=== PATIENT | female | born 1940 | race Caucasian/White ===

== ENCOUNTER 2017-02-08 10:55 | Inpatient (IN) | payer OTHER ==
[~2017-02-08] VITALS: Ht 157.5 cm; Wt 59.9 kg
[~2017-02-08 10:55] MED LIST: AMLODIPINE BESYL5 MG PO; ATORVASTATIN CA20 MG PO; LEVOFLOXACIN500 MG PO; LISINOPRIL40 MG PO; LORAZEPAM0.5 MG PO; METFORMIN HCL500 MG PO; METOPROLOL SUCC50 MG PO; PREDNISONE10 MG PO; PROMETHAZINE V240 ML PO; TRAZODONE HCL50 MG PO
[2017-02-08 11:56] LABS: BASE EXCESS -5.7 mEq/L (-3 to +3); CARBOXY HGB 3.6 % (0-5); METHEMOGLOBIN 1.5 % (0-1.5); PCO2 29 mm Hg (35-45); PO2 72 mm Hg (80-100)
[2017-02-08 11:57] LABS: COMMENTS - BLOOD GASES A+C+; DEVICE HHFNC; FI02 60 %; O2 FLOW 40 L/MIN; SITE R RAD; TOTAL RESP RATE 20 resp/min
[2017-02-08 12:40] LABS: BASOPHIL COUNT 0.1 K/uL (0-0.1); EOSINOPHIL (%) 0.1 % (0-5); IMMATURE GRANULOCYTE (%) 0.6 % (0.0-0.7); IMMATURE GRANULOCYTE COUNT 0.1 K/uL; INSTRUMENT ABS NEUTROPHIL CT 17.9 K/uL; LYMPHOCYTE COUNT 0.3 K/uL (1.0-2.8); MCH 28.3 PG (29.0-34.0); MCHC 31.4 G/DL (30.0-36.0); MCV 90.2 FL (83-99); MONOCYTE (%) 6.7 % (3-12); MONOCYTE COUNT 1.3 K/uL (0-0.8); NEUTROPHIL (%) 90.7 % (45-76); NEUTROPHIL COUNT 17.9 K/uL (1.8-6.4); RBC DIS.WIDTH-CV 16.6 % (11.8-14.6); RBC DIS.WIDTH-SD 55.4 % (39-53)
[2017-02-08 12:43] LABS: WHITE BLOOD COUNT 19.8 K/uL (4.1-10.2)
[2017-02-08 12:53] LABS: INTER. NORMALIZED RATIO 1.5; PROTHROMBIN TIME 15.5 (9.2-11.2); PTT 29.5 (25-32)
[2017-02-08 12:56] LABS: CHLORIDE 108 mEq/L (99-109); POTASSIUM 4.3 mEq/L (3.7-5.4); SODIUM 144 mEq/L (136-147)
[2017-02-08 12:58] LABS: GLUCOSE 291 mg/dL (70-99)
[2017-02-08 13:00] LABS: ANION GAP 21 MEQ/L (2-14)
[2017-02-08 13:02] LABS: GFR ESTIMATE (CALCULATED) 46 mL/min/
[2017-02-08 13:03] LABS: UREA NITROGEN (BUN) 27 mg/dL (9-23)
[2017-02-08 13:19] LABS: TROP-I INTERPRETATION POSITIVE; TROPONIN-I 0.86 ng/mL (0.0-0.30)
[2017-02-08 13:40] LABS: PLAT.SUFFICIENCY ADEQUATE; PLATELET CLUMPS PRESENT - PLATELET COUNT APPEARS ADQ.
[2017-02-08 16:00] LABS: INFLUENZA A VIRAL ANTIGEN NEGATIVE; INFLUENZA B VIRAL ANTIGEN NEGATIVE
[2017-02-08 18:21] VITALS: BP 123/79
[2017-02-08 18:47] LABS: POINT-OF-CARE METER ID UU14174217
[2017-02-08 19:00] VITALS: BP 109/70
[2017-02-08 19:28] LABS: TROP-I INTERPRETATION POSITIVE; TROPONIN-I 2.93 ng/mL (0.0-0.30)
[2017-02-08 19:45] LABS: METH RESISTANT S AUREUS PCR NEGATIVE (NEGATIVE)
[2017-02-08 19:50] LABS: PROBE CHECK PASS; SPECIMEN PROCESSING CONTROL PASS
[2017-02-08 20:00] VITALS: BP 101/68
[2017-02-08] MEDS ORDERED: LISINOPRIL40 MG PO (20:49)
[2017-02-08] MEDS ORDERED: METOPROLOL SUCC50 MG PO (20:49)
[2017-02-08] MEDS ORDERED: AMLODIPINE BESYL5 MG PO (20:50)
[2017-02-08] MEDS ORDERED: METFORMIN HCL500 MG PO (20:51)
[2017-02-08 21:00] VITALS: BP 125/78
[2017-02-08] MEDS ORDERED: TRAZODONE HCL100 MG PO (21:17)
[2017-02-08 22:00] VITALS: BP 112/71
[2017-02-08 22:24] LABS: POINT-OF-CARE METER ID UU14162636
[2017-02-08 23:00] VITALS: BP 91/58
[2017-02-09] VITALS (13 sets, daily range): BP systolic 90–131; BP diastolic 53–82
[2017-02-09 05:56] LABS: HEMATOCRIT 31.1 % (36.0-46.0); MCH 28.4 PG (29.0-34.0); MCHC 32.5 G/DL (30.0-36.0); MCV 87.4 FL (83-99); PLATELET COUNT 187 K/uL (156-360); RBC DIS.WIDTH-CV 17.2 % (11.8-14.6); RED BLOOD COUNT 3.56 M/uL (3.80-5.20); WHITE BLOOD COUNT 15.8 K/uL (4.1-10.2)
[2017-02-09 06:17] LABS: MEAN PLAT.VOLUME 11.4 uM^3 (9.5-12.4)
[2017-02-09 06:27] LABS: TROP-I INTERPRETATION POSITIVE; TROPONIN-I 2.28 ng/mL (0.0-0.30)
[2017-02-09 06:53] LABS: ANION GAP 12 MEQ/L (2-14); CHLORIDE 111 MEQ/L (99-109); GFR ESTIMATE (CALCULATED) > 59 mL/min/; GLUCOSE 161 mg/dL (70-99); POTASSIUM 3.7 MEQ/L (3.7-5.4); SAMPLE HEMOLYSIS CHECK 0; SAMPLE ICTERIC CHECK 0; SAMPLE LIPEMIA CHECK 0; SODIUM 145 MEQ/L (136-147); UREA NITROGEN (BUN) 34 mg/dL (9-23)
[2017-02-09 08:08] LABS: INTERNAL CONTROL VALID? YES
[2017-02-09 08:10] LABS: ADD MIUA? YES; BILIRUBIN NEGATIVE; BLOOD MODERATE; COLOR YELLOW ((YELLOW)); GLUCOSE (STRIP) NEGATIVE; KETONES NEGATIVE; LEUKOCYTES LARGE; NITRITE NEGATIVE; PROTEIN (STRIP) 30; UROBILINOGEN 0.2 MG/DL (0.2-1.0)
[2017-02-09 08:38] LABS: BACTERIA RARE /HPF; EPITHELIAL CELLS RARE /HPF; GRANULAR CASTS 0-5 /LPF; MUCUS TRACE /LPF; RED BLOOD CELLS 20-30 /HPF (0-5); WHITE BLOOD CELLS TNTC /HPF (0-5)
[2017-02-09] MEDS ORDERED: LORAZEPAM0.5 MG PO (17:51)
[2017-02-09 22:21] LABS: POINT-OF-CARE METER ID UU13113803
[2017-02-10] VITALS (7 sets, daily range): BP systolic 103–133; BP diastolic 55–79
[2017-02-10 07:02] LABS: HEMATOCRIT 29.5 % (36.0-46.0); MCH 28.1 PG (29.0-34.0); MCHC 31.9 G/DL (30.0-36.0); MCV 88.1 FL (83-99); MEAN PLAT.VOLUME 11.2 uM^3 (9.5-12.4); PLATELET COUNT 211 K/uL (156-360); RBC DIS.WIDTH-SD 55.1 % (39-53); RED BLOOD COUNT 3.35 M/uL (3.80-5.20); WHITE BLOOD COUNT 20.1 K/uL (4.1-10.2)
[2017-02-10 08:16] LABS: ANION GAP 10 MEQ/L (2-14); CHLORIDE 112 MEQ/L (99-109); GFR ESTIMATE (CALCULATED) > 59 mL/min/; GLUCOSE 155 mg/dL (70-99); POTASSIUM 3.7 MEQ/L (3.7-5.4); SAMPLE HEMOLYSIS CHECK 0; SAMPLE ICTERIC CHECK 0; SAMPLE LIPEMIA CHECK 0; SODIUM 144 MEQ/L (136-147); UREA NITROGEN (BUN) 30 mg/dL (9-23)
[2017-02-10 11:39] LABS: POINT-OF-CARE METER ID UU14162636
[2017-02-10 17:14] LABS: POINT-OF-CARE METER ID UU14162636
[2017-02-10 21:51] LABS: POINT-OF-CARE METER ID UU14162636
[2017-02-11] VITALS: BP 113/75
[2017-02-11 04:00] VITALS: BP 131/75
[2017-02-11 05:33] LABS: HEMATOCRIT 29.5 % (36.0-46.0); MCH 28.1 PG (29.0-34.0); MCHC 31.9 G/DL (30.0-36.0); MCV 88.1 FL (83-99); MEAN PLAT.VOLUME 10.7 uM^3 (9.5-12.4); PLATELET COUNT 244 K/uL (156-360); RBC DIS.WIDTH-CV 17.2 % (11.8-14.6); RBC DIS.WIDTH-SD 54.9 % (39-53); RED BLOOD COUNT 3.35 M/uL (3.80-5.20); WHITE BLOOD COUNT 16.7 K/uL (4.1-10.2)
[2017-02-11 07:26] LABS: ANION GAP 10 MEQ/L (2-14); CHLORIDE 111 MEQ/L (99-109); GFR ESTIMATE (CALCULATED) > 59 mL/min/; GLUCOSE 135 mg/dL (70-99); POTASSIUM 3.8 MEQ/L (3.7-5.4); SAMPLE HEMOLYSIS CHECK 0; SAMPLE ICTERIC CHECK 0; SAMPLE LIPEMIA CHECK 0; SODIUM 145 MEQ/L (136-147); UREA NITROGEN (BUN) 25 mg/dL (9-23)
[2017-02-11 07:37] LABS: POINT-OF-CARE METER ID UU13113731
[2017-02-11 08:00] VITALS: BP 113/66
[2017-02-11 12:00] VITALS: BP 140/70
[2017-02-11 16:00] VITALS: BP 124/70
[2017-02-11 20:00] VITALS: BP 143/87
[2017-02-11 21:50] LABS: POINT-OF-CARE METER ID UU14174217
[2017-02-12] VITALS (9 sets, daily range): BP systolic 106–137; BP diastolic 64–80
[2017-02-12 08:00] LABS: POINT-OF-CARE METER ID UU13113803
[2017-02-12 08:54] LABS: HEMATOCRIT 29.8 % (36.0-46.0); MCH 28.2 PG (29.0-34.0); MCHC 31.5 G/DL (30.0-36.0); MCV 89.5 FL (83-99); MEAN PLAT.VOLUME 10.7 uM^3 (9.5-12.4); PLATELET COUNT 238 K/uL (156-360); RBC DIS.WIDTH-CV 17.5 % (11.8-14.6); RBC DIS.WIDTH-SD 56.8 % (39-53); RED BLOOD COUNT 3.33 M/uL (3.80-5.20); WHITE BLOOD COUNT 15.2 K/uL (4.1-10.2)
[2017-02-12 09:07] LABS: ANION GAP 6 MEQ/L (2-14); CHLORIDE 113 MEQ/L (99-109); GFR ESTIMATE (CALCULATED) > 59 mL/min/; POTASSIUM 3.5 MEQ/L (3.7-5.4); SAMPLE HEMOLYSIS CHECK 0; SAMPLE ICTERIC CHECK 0; SAMPLE LIPEMIA CHECK 0; SODIUM 145 MEQ/L (136-147); UREA NITROGEN (BUN) 24 mg/dL (9-23)
[2017-02-12 09:09] LABS: GLUCOSE 90 mg/dL (70-99)
[2017-02-12 12:31] LABS: POINT-OF-CARE METER ID UU13113803
[2017-02-12 16:29] LABS: POINT-OF-CARE METER ID UU14174217
[2017-02-12 21:35] LABS: POINT-OF-CARE METER ID UU13113803
[2017-02-13] VITALS (7 sets, daily range): BP systolic 106–141; BP diastolic 62–85
[2017-02-13 05:52] LABS: MCH 28.1 PG (29.0-34.0); MCHC 31.4 G/DL (30.0-36.0); MCV 89.5 FL (83-99); MEAN PLAT.VOLUME 10.9 uM^3 (9.5-12.4); PLATELET COUNT 234 K/uL (156-360); RBC DIS.WIDTH-CV 17.5 % (11.8-14.6); RBC DIS.WIDTH-SD 56.3 % (39-53); RED BLOOD COUNT 3.13 M/uL (3.80-5.20); WHITE BLOOD COUNT 11.2 K/uL (4.1-10.2)
[2017-02-13 06:24] LABS: ANION GAP 5 MEQ/L (2-14); CHLORIDE 111 MEQ/L (99-109); GFR ESTIMATE (CALCULATED) > 59 mL/min/; GLUCOSE 74 mg/dL (70-99); POTASSIUM 3.6 MEQ/L (3.7-5.4); SAMPLE HEMOLYSIS CHECK 0; SAMPLE ICTERIC CHECK 0; SAMPLE LIPEMIA CHECK 0; SODIUM 144 MEQ/L (136-147); UREA NITROGEN (BUN) 19 mg/dL (9-23)
[2017-02-13 12:16] LABS: POINT-OF-CARE METER ID UU14174217
[2017-02-13 16:55] LABS: POINT-OF-CARE METER ID UU14174217
[2017-02-13 22:04] LABS: POINT-OF-CARE METER ID UU14174217; POINT-OF-CARE USER ID ENVSME70
[2017-02-14] VITALS (9 sets, daily range): BP systolic 107–162; BP diastolic 65–86
[2017-02-14 05:41] LABS: HEMATOCRIT 30.2 % (36.0-46.0); MCH 28.4 PG (29.0-34.0); MCHC 32.1 G/DL (30.0-36.0); MCV 88.3 FL (83-99); MEAN PLAT.VOLUME 10.1 uM^3 (9.5-12.4); PLATELET COUNT 260 K/uL (156-360); RBC DIS.WIDTH-CV 17.6 % (11.8-14.6); RBC DIS.WIDTH-SD 56.1 % (39-53); RED BLOOD COUNT 3.42 M/uL (3.80-5.20); WHITE BLOOD COUNT 11.8 K/uL (4.1-10.2)
[2017-02-14 09:21] LABS: CHLORIDE 108 mEq/L (99-109); POTASSIUM 3.9 mEq/L (3.7-5.4); SODIUM 142 mEq/L (136-147)
[2017-02-14 09:22] LABS: GLUCOSE 72 mg/dL (70-99)
[2017-02-14 09:24] LABS: ANION GAP 10 MEQ/L (2-14)
[2017-02-14 09:26] LABS: GFR ESTIMATE (CALCULATED) > 59 mL/min/
[2017-02-14 09:27] LABS: UREA NITROGEN (BUN) 19 mg/dL (9-23)
[2017-02-14 11:58] LABS: POINT-OF-CARE METER ID UU14174217; POINT-OF-CARE USER ID 606021424
[2017-02-14 17:21] LABS: POINT-OF-CARE METER ID UU14188577
[2017-02-15 03:59] VITALS: BP 146/84
[2017-02-15 05:55] LABS: HEMATOCRIT 31.4 % (36.0-46.0); MCHC 31.5 G/DL (30.0-36.0); MEAN PLAT.VOLUME 10.8 uM^3 (9.5-12.4); PLATELET COUNT 288 K/uL (156-360); RBC DIS.WIDTH-CV 17.7 % (11.8-14.6); RBC DIS.WIDTH-SD 57.5 % (39-53); RED BLOOD COUNT 3.53 M/uL (3.80-5.20); WHITE BLOOD COUNT 10.6 K/uL (4.1-10.2)
[2017-02-15 06:35] LABS: ANION GAP 7 MEQ/L (2-14); CHLORIDE 105 MEQ/L (99-109); GFR ESTIMATE (CALCULATED) > 59 mL/min/; POTASSIUM 3.8 MEQ/L (3.7-5.4); SAMPLE HEMOLYSIS CHECK 0; SAMPLE ICTERIC CHECK 0; SAMPLE LIPEMIA CHECK 0; SODIUM 142 MEQ/L (136-147); UREA NITROGEN (BUN) 19 mg/dL (9-23)
[2017-02-15 06:38] LABS: GLUCOSE 95 mg/dL (70-99)
[2017-02-15 07:49] VITALS: BP 167/82
[2017-02-15 11:17] LABS: POINT-OF-CARE METER ID UU14188577
[2017-02-15 11:22] VITALS: BP 138/60
[2017-02-15 15:25] VITALS: BP 134/74
[2017-02-15 19:54] VITALS: BP 131/76
[2017-02-15 22:50] LABS: POINT-OF-CARE METER ID UU14188577
[2017-02-16 00:02] VITALS: BP 127/70
[2017-02-16 03:59] VITALS: BP 131/69
[2017-02-16 07:15] LABS: POINT-OF-CARE METER ID UU14149397
[2017-02-16 08:21] VITALS: BP 146/74
[2017-02-16 08:45] LABS: POINT-OF-CARE METER ID UU14149397
[2017-02-16 15:59] VITALS: BP 154/70
[2017-02-16 16:53] LABS: POINT-OF-CARE METER ID UU14149397
[2017-02-16 19:51] VITALS: BP 150/67
[2017-02-16 22:08] LABS: POINT-OF-CARE METER ID UU14188577
[2017-02-16 23:41] VITALS: BP 145/70
[2017-02-17 04:18] VITALS: BP 152/71
[2017-02-17 05:57] LABS: EOSINOPHIL (%) 0.1 % (0-5); HEMATOCRIT 31.3 % (36.0-46.0); IMMATURE GRANULOCYTE (%) 0.4 % (0.0-0.7); INSTRUMENT ABS NEUTROPHIL CT 8.1 K/uL; LYMPHOCYTE COUNT 0.3 K/uL (1.0-2.8); MCH 28.5 PG (29.0-34.0); MCHC 31.6 G/DL (30.0-36.0); MCV 90.2 FL (83-99); MEAN PLAT.VOLUME 10.1 uM^3 (9.5-12.4); MONOCYTE (%) 5.7 % (3-12); MONOCYTE COUNT 0.5 K/uL (0-0.8); NEUTROPHIL (%) 90.8 % (45-76); NEUTROPHIL COUNT 8.1 K/uL (1.8-6.4); PLATELET COUNT 284 K/uL (156-360); RBC DIS.WIDTH-CV 17.4 % (11.8-14.6); RBC DIS.WIDTH-SD 58.1 % (39-53); RED BLOOD COUNT 3.47 M/uL (3.80-5.20); WHITE BLOOD COUNT 8.9 K/uL (4.1-10.2)
[2017-02-17 06:15] LABS: ANION GAP 6 MEQ/L (2-14); CHLORIDE 104 MEQ/L (99-109); GFR ESTIMATE (CALCULATED) > 59 mL/min/; GLUCOSE 111 mg/dL (70-99); POTASSIUM 3.9 MEQ/L (3.7-5.4); SAMPLE HEMOLYSIS CHECK 0; SAMPLE ICTERIC CHECK 0; SAMPLE LIPEMIA CHECK 0; SODIUM 140 MEQ/L (136-147); UREA NITROGEN (BUN) 20 mg/dL (9-23)
[2017-02-17 06:59] LABS: POINT-OF-CARE METER ID UU14188577
[2017-02-17 08:22] VITALS: BP 174/79
[2017-02-17 12:07] LABS: POINT-OF-CARE METER ID UU14188577
[2017-02-17 12:37] VITALS: BP 132/65
[2017-02-17 15:13] VITALS: BP 140/68
[2017-02-17 17:07] LABS: POINT-OF-CARE METER ID UU14149397
[2017-02-17 19:34] VITALS: BP 158/68
[2017-02-17 23:42] VITALS: BP 152/66
[2017-02-18 04:03] VITALS: BP 153/70
[2017-02-18 06:04] LABS: EOSINOPHIL (%) 0 % (0-5); HEMATOCRIT 30.7 % (36.0-46.0); IMMATURE GRANULOCYTE (%) 0.5 % (0.0-0.7); INSTRUMENT ABS NEUTROPHIL CT 7.6 K/uL; LYMPHOCYTE COUNT 0.2 K/uL (1.0-2.8); MCH 28.5 PG (29.0-34.0); MCHC 31.9 G/DL (30.0-36.0); MCV 89.2 FL (83-99); MEAN PLAT.VOLUME 10.7 uM^3 (9.5-12.4); MONOCYTE (%) 5.2 % (3-12); MONOCYTE COUNT 0.4 K/uL (0-0.8); NEUTROPHIL (%) 91.4 % (45-76); NEUTROPHIL COUNT 7.6 K/uL (1.8-6.4); PLATELET COUNT 315 K/uL (156-360); RBC DIS.WIDTH-CV 17.1 % (11.8-14.6); RBC DIS.WIDTH-SD 55.7 % (39-53); RED BLOOD COUNT 3.44 M/uL (3.80-5.20); WHITE BLOOD COUNT 8.3 K/uL (4.1-10.2)
[2017-02-18 06:25] LABS: ANION GAP 6 MEQ/L (2-14); CHLORIDE 105 MEQ/L (99-109); GFR ESTIMATE (CALCULATED) > 59 mL/min/; GLUCOSE 117 mg/dL (70-99); POTASSIUM 3.7 MEQ/L (3.7-5.4); SAMPLE HEMOLYSIS CHECK 0; SAMPLE ICTERIC CHECK 0; SAMPLE LIPEMIA CHECK 0; SODIUM 141 MEQ/L (136-147); UREA NITROGEN (BUN) 18 mg/dL (9-23)
[2017-02-18 07:47] VITALS: BP 142/80
[2017-02-18 11:03] VITALS: BP 122/60
[2017-02-18 11:42] LABS: POINT-OF-CARE METER ID UU14188577
[2017-02-18 15:29] VITALS: BP 141/67
[2017-02-18 20:00] VITALS: BP 147/70
[2017-02-19 00:13] VITALS: BP 160/82
[2017-02-19 04:00] VITALS: BP 135/69
[2017-02-19 05:34] LABS: HEMATOCRIT 30.7 % (36.0-46.0); MCH 28.6 PG (29.0-34.0); MCHC 31.9 G/DL (30.0-36.0); MCV 89.5 FL (83-99); MEAN PLAT.VOLUME 10.6 uM^3 (9.5-12.4); PLATELET COUNT 311 K/uL (156-360); RBC DIS.WIDTH-CV 17.2 % (11.8-14.6); RED BLOOD COUNT 3.43 M/uL (3.80-5.20); WHITE BLOOD COUNT 10.6 K/uL (4.1-10.2)
[2017-02-19 08:00] VITALS: BP 142/80
[2017-02-19 10:48] VITALS: BP 138/68
[2017-02-19 15:37] VITALS: BP 138/73
[2017-02-19 23:50] VITALS: BP 158/79
[2017-02-20 08:05] VITALS: BP 152/66
[2017-02-20 11:58] LABS: POINT-OF-CARE METER ID UU14188577
[2017-02-20 15:35] VITALS: BP 143/66
[2017-02-20 16:35] LABS: POINT-OF-CARE METER ID UU14188577
[2017-02-21 07:56] VITALS: BP 150/70
[2017-02-21 09:10] LABS: HEMATOCRIT 34.4 % (36.0-46.0); MCH 28.4 PG (29.0-34.0); MCHC 31.4 G/DL (30.0-36.0); MCV 90.5 FL (83-99); MEAN PLAT.VOLUME 10.5 uM^3 (9.5-12.4); PLATELET COUNT 302 K/uL (156-360); RBC DIS.WIDTH-CV 17.2 % (11.8-14.6); RBC DIS.WIDTH-SD 57.1 % (39-53); WHITE BLOOD COUNT 10.9 K/uL (4.1-10.2)
[2017-02-21 09:38] LABS: ANION GAP 7 MEQ/L (2-14); CHLORIDE 104 MEQ/L (99-109); GFR ESTIMATE (CALCULATED) > 59 mL/min/; GLUCOSE 160 mg/dL (70-99); POTASSIUM 3.5 MEQ/L (3.7-5.4); SAMPLE HEMOLYSIS CHECK 0; SAMPLE ICTERIC CHECK 0; SAMPLE LIPEMIA CHECK 0; SODIUM 141 MEQ/L (136-147); UREA NITROGEN (BUN) 21 mg/dL (9-23)
[2017-02-21 11:40] VITALS: BP 152/77
[2017-02-21 15:40] VITALS: BP 156/74
[2017-02-21 16:24] LABS: POINT-OF-CARE METER ID UU14188577
[2017-02-21 20:01] VITALS: BP 153/74
[2017-02-21 22:03] LABS: POINT-OF-CARE METER ID UU14188577
[2017-02-21 23:39] VITALS: BP 169/79
[2017-02-22 03:38] VITALS: BP 159/88
[2017-02-22 03:56] VITALS: BP 148/71
[2017-02-22 06:15] LABS: HEMATOCRIT 32.2 % (36.0-46.0); MCH 28.1 PG (29.0-34.0); MCHC 31.1 G/DL (30.0-36.0); MCV 90.4 FL (83-99); MEAN PLAT.VOLUME 10.7 uM^3 (9.5-12.4); PLATELET COUNT 267 K/uL (156-360); RBC DIS.WIDTH-CV 17.2 % (11.8-14.6); RBC DIS.WIDTH-SD 57.1 % (39-53); RED BLOOD COUNT 3.56 M/uL (3.80-5.20)
[2017-02-22 06:35] LABS: POINT-OF-CARE METER ID UU14188577
[2017-02-22 07:27] VITALS: BP 173/84
[2017-02-22 11:11] LABS: POINT-OF-CARE METER ID UU14188577
[2017-02-22 11:17] VITALS: BP 130/63
[2017-02-22 12:51] LABS: ANION GAP 7 MEQ/L (2-14); CHLORIDE 103 MEQ/L (99-109); GFR ESTIMATE (CALCULATED) > 59 mL/min/; GLUCOSE 190 mg/dL (70-99); POTASSIUM 3.4 MEQ/L (3.7-5.4); SAMPLE HEMOLYSIS CHECK 0; SAMPLE ICTERIC CHECK 0; SAMPLE LIPEMIA CHECK 0; SODIUM 141 MEQ/L (136-147); UREA NITROGEN (BUN) 19 mg/dL (9-23)
[2017-02-22 15:25] VITALS: BP 148/77
[2017-02-22 16:42] LABS: POINT-OF-CARE METER ID UU14188577
[2017-02-22 20:24] VITALS: BP 155/78
[2017-02-23 00:39] VITALS: BP 139/76
[2017-02-23 04:13] VITALS: BP 138/84
[2017-02-23 07:07] LABS: POINT-OF-CARE METER ID UU14149397
[2017-02-23 08:51] LABS: ANION GAP 10 MEQ/L (2-14); CHLORIDE 106 MEQ/L (99-109); POTASSIUM 3.9 MEQ/L (3.7-5.4); SAMPLE HEMOLYSIS CHECK 0; SAMPLE ICTERIC CHECK 0; SAMPLE LIPEMIA CHECK 0; SODIUM 140 MEQ/L (136-147)
[2017-02-23 08:57] LABS: GFR ESTIMATE (CALCULATED) > 59 mL/min/; UREA NITROGEN (BUN) 21 mg/dL (9-23)
[2017-02-23 08:58] LABS: GLUCOSE 79 mg/dL (70-99)
[2017-02-23 11:43] LABS: POINT-OF-CARE METER ID UU14188577
[2017-02-23 12:07] VITALS: BP 160/91
[2017-02-23] MEDS ORDERED: CLOPIDOGREL75 MG PO (14:01)
[2017-02-23] MEDS ORDERED: ATORVASTATIN CA40 MG PO (14:01)
[2017-02-23] MEDS ORDERED: ASPIR-LOW81 MG PO (14:01)
[2017-02-23] MEDS ORDERED: ELIQUIS5 MG PO ×2 (14:18→14:29)
[2017-02-23] MEDS ORDERED: PREDNISONE5 MG PO (14:26)
[2017-02-23] MEDS ORDERED: NOVOLOG PE100 UNITS/ SC (14:27)
[2017-02-23] MEDS ORDERED: OMEPRAZOLE20 MG PO (14:32)
[2017-02-23 16:53] VITALS: BP 141/84
[2017-02-23 17:09] LABS: POINT-OF-CARE METER ID UU14188577
== END 2017-02-23 20:42 | DRG 871 ==
LOC: EME 10:55 → EDOF 14:22 → 4WEST 14:22 → 3EAST 02-14 16:32
PROVIDERS: Emergency Medicine; Hospitalist; Internal Medicine Cardiovascular Disease; Physician Assistant; Student in an Organized Health Care Education/Training Program
DX: A41.9 Sepsis, unspecified organism (principal); R65.20 Severe sepsis without septic shock; J96.01 Acute respiratory failure with hypoxia; J44.0 Chronic obstructive pulmonary disease with (acute) lower respiratory infection; J18.9 Pneumonia, unspecified organism; I26.09 Other pulmonary embolism with acute cor pulmonale; I21.4 Non-ST elevation (NSTEMI) myocardial infarction; I82.431 Acute embolism and thrombosis of right popliteal vein; I82.443 Acute embolism and thrombosis of tibial vein, bilateral; I82.491 Acute embolism and thrombosis of other specified deep vein of right lower extremity; C34.92 Malignant neoplasm of unspecified part of left bronchus or lung; J70.1 Chronic and other pulmonary manifestations due to radiation; W88.8XXA Exposure to other ionizing radiation, initial encounter; I48.92 Unspecified atrial flutter; E86.0 Dehydration; E87.2 Acidosis; D68.69 Other thrombophilia; I95.9 Hypotension, unspecified; A69.20 Lyme disease, unspecified; I71.2 Thoracic aortic aneurysm, without rupture; I10 Essential (primary) hypertension; E78.5 Hyperlipidemia, unspecified; E11.9 Type 2 diabetes mellitus without complications; L40.9 Psoriasis, unspecified; I35.8 Other nonrheumatic aortic valve disorders; Z92.21 Personal history of antineoplastic chemotherapy; Z87.891 Personal history of nicotine dependence; Z79.84 Long term (current) use of oral hypoglycemic drugs; Z87.440 Personal history of urinary (tract) infections
CPT/HCPCS: 36600; 71010; 71020; 71275; 76775; 80048; 80202; 81003; 82803; 82948; 83605; 84145 90; 84484; 85025; 85027; 85610; 85730; 86609 90; 87040; 87070; 87205; 87449; 87502; 87641; 93005; 93306; 93970; 94640; 94760; 94799; 97530 GO; 97530 GP; 99281; 99285; J0456; J0692; J1650; J1815; J1940; J2920; J2930; J3370; J7050; J7512

== ENCOUNTER 2017-02-25 09:37 | Emergency (ER) | payer OTHER ==
[~2017-02-25] VITALS: Ht 157.5 cm; Wt 60.1 kg
[~2017-02-25 09:37] MED LIST changes: +ASPIR-LOW81 MG PO; +ATORVASTATIN CA40 MG PO; +CLOPIDOGREL75 MG PO; +ELIQUIS5 MG PO; +NOVOLOG PE100 UNITS/ SC; +OMEPRAZOLE20 MG PO; +PREDNISONE5 MG PO; +TRAZODONE HCL100 MG PO
[2017-02-25 10:31] LABS: EOSINOPHIL (%) 1.5 % (0-5); EOSINOPHIL COUNT 0.2 K/uL (0-0.3); HEMATOCRIT 35.3 % (36.0-46.0); IMMATURE GRANULOCYTE (%) 0.4 % (0.0-0.7); IMMATURE GRANULOCYTE COUNT 0.1 K/uL; INSTRUMENT ABS NEUTROPHIL CT 10.9 K/uL; LYMPHOCYTE COUNT 0.5 K/uL (1.0-2.8); MCH 28.6 PG (29.0-34.0); MCHC 31.7 G/DL (30.0-36.0); MCV 90.1 FL (83-99); MONOCYTE (%) 5.1 % (3-12); MONOCYTE COUNT 0.6 K/uL (0-0.8); NEUTROPHIL (%) 88.7 % (45-76); NEUTROPHIL COUNT 10.9 K/uL (1.8-6.4); PLATELET COUNT 273 K/uL (156-360); RBC DIS.WIDTH-CV 17.3 % (11.8-14.6); RBC DIS.WIDTH-SD 57.8 % (39-53); RED BLOOD COUNT 3.92 M/uL (3.80-5.20)
[2017-02-25 10:35] LABS: WHITE BLOOD COUNT 12.3 K/uL (4.1-10.2)
[2017-02-25 10:38] LABS: INTER. NORMALIZED RATIO 1.1; PROTHROMBIN TIME 10.9 (9.2-11.2); PTT 24.2 (25-32)
[2017-02-25 10:50] LABS: TROP-I INTERPRETATION NEGATIVE; TROPONIN-I < 0.01 ng/mL (0.0-0.30)
[2017-02-25 11:01] LABS: CHLORIDE 106 mEq/L (99-109); SODIUM 143 mEq/L (136-147)
[2017-02-25 11:03] LABS: GLUCOSE 82 mg/dL (70-99); POTASSIUM 3.5 mEq/L (3.7-5.4)
[2017-02-25 11:04] LABS: ANION GAP 10 MEQ/L (2-14)
[2017-02-25 11:06] LABS: GFR ESTIMATE (CALCULATED) > 59 mL/min/
[2017-02-25 11:07] LABS: UREA NITROGEN (BUN) 25 mg/dL (9-23)
[2017-02-25 12:30] LABS: POINT-OF-CARE METER ID UU14100415
[2017-02-25] MEDS ORDERED: LEVAQUIN500 MG PO (13:45)
[2017-02-25] MEDS ORDERED: DUONEB 2.5-0.5 M3 ML AEROSOL (13:45)
[2017-02-25 15:50] VITALS: BP 123/75
== END 2017-02-25 15:52 ==
LOC: EME 09:37
PROVIDERS: Emergency Medicine
DX: J84.10 Pulmonary fibrosis, unspecified (principal); Z85.118 Personal history of other malignant neoplasm of bronchus and lung; J20.9 Acute bronchitis, unspecified; E11.9 Type 2 diabetes mellitus without complications; I10 Essential (primary) hypertension; Z86.711 Personal history of pulmonary embolism; Z86.718 Personal history of other venous thrombosis and embolism; Z87.891 Personal history of nicotine dependence; Z79.84 Long term (current) use of oral hypoglycemic drugs; Z79.01 Long term (current) use of anticoagulants
CPT/HCPCS: 71010; 71275; 80048 91; 82948; 83880; 84484; 85025 91; 85610; 85730; 93005; 94640; 99281; 99285; J7644

== ENCOUNTER 2017-05-10 11:44 | Observation (INO) | payer OTHER ==
[~2017-05-10] VITALS: Ht 157.5 cm; Wt 58.4 kg
[~2017-05-10 11:44] MED LIST changes: +DUONEB 2.5-0.5 M3 ML AEROSOL; +LEVAQUIN500 MG PO
[2017-05-10 14:14] LABS: HEMATOCRIT 37.7 % (36.0-46.0); MCH 27.8 PG (29.0-34.0); MCHC 32.4 G/DL (30.0-36.0); MCV 85.9 FL (83-99); MEAN PLAT.VOLUME 10.4 uM^3 (9.5-12.4); NRBC (%) 0.2 /100 WBC (0-0); PLATELET COUNT 135 K/uL (156-360); RBC DIS.WIDTH-CV 17.2 % (11.8-14.6); RBC DIS.WIDTH-SD 53.3 % (39-53); RED BLOOD COUNT 4.39 M/uL (3.80-5.20); WHITE BLOOD COUNT 12.8 K/uL (4.1-10.2)
[2017-05-10 14:29] LABS: CHLORIDE 104 mEq/L (99-109); POTASSIUM 4.4 mEq/L (3.7-5.4); SODIUM 142 mEq/L (136-147)
[2017-05-10 14:31] LABS: GLUCOSE 232 mg/dL (70-99)
[2017-05-10 14:32] LABS: ANION GAP 9 MEQ/L (2-14)
[2017-05-10 14:35] LABS: GFR ESTIMATE (CALCULATED) > 59 mL/min/
[2017-05-10 14:36] LABS: UREA NITROGEN (BUN) 21 mg/dL (9-23)
[2017-05-10 14:37] LABS: TROP-I INTERPRETATION NEGATIVE; TROPONIN-I 0.01 ng/mL (0.0-0.30)
[2017-05-10] MEDS ORDERED: ELIQUIS5 MG PO (16:45)
[2017-05-10] MEDS ORDERED: CLARITIN,ALAVAR10 MG PO (16:45)
[2017-05-10] MEDS ORDERED: LIPITOR40 MG PO (16:46)
[2017-05-10] MEDS ORDERED: TYLENOL REGULA325 MG PO (16:46)
[2017-05-10] MEDS ORDERED: OMEPRAZOLE20 MG PO (16:48)
[2017-05-10] MEDS ORDERED: [UNRECOGNIZED DRUG - SUPPLY] TD (16:49)
[2017-05-10 19:33] VITALS: BP 115/76
[2017-05-10 21:09] LABS: TROP-I INTERPRETATION NEGATIVE; TROPONIN-I 0.01 ng/mL (0.0-0.30)
[2017-05-11] VITALS: BP 116/74
[2017-05-11 03:59] LABS: TROP-I INTERPRETATION NEGATIVE; TROPONIN-I 0.01 ng/mL (0.0-0.30)
[2017-05-11 04:30] VITALS: BP 120/76
[2017-05-11 08:20] LABS: POINT-OF-CARE METER ID UU13113700
[2017-05-11 08:30] VITALS: BP 155/88
[2017-05-11 08:37] LABS: CHLORIDE 103 mEq/L (99-109); POTASSIUM 3.6 mEq/L (3.7-5.4); SODIUM 140 mEq/L (136-147)
[2017-05-11 08:39] LABS: GLUCOSE 272 mg/dL (70-99)
[2017-05-11 08:40] LABS: ANION GAP 11 MEQ/L (2-14)
[2017-05-11 08:43] LABS: GFR ESTIMATE (CALCULATED) > 59 mL/min/
[2017-05-11 08:44] LABS: UREA NITROGEN (BUN) 12 mg/dL (9-23)
[2017-05-11 11:11] VITALS: BP 136/78
== END 2017-05-11 14:00 | disposition home or self-care (01) ==
LOC: EME 11:44 → EDOF 17:03 → 5WEST 17:03
PROVIDERS: Emergency Medicine; Hospitalist; Internal Medicine
DX: R06.09 Other forms of dyspnea (principal); Z85.118 Personal history of other malignant neoplasm of bronchus and lung; J44.9 Chronic obstructive pulmonary disease, unspecified; Z99.81 Dependence on supplemental oxygen; Z79.52 Long term (current) use of systemic steroids; I71.4 Abdominal aortic aneurysm, without rupture; M89.9 Disorder of bone, unspecified; Z86.711 Personal history of pulmonary embolism; Z86.718 Personal history of other venous thrombosis and embolism; Z87.891 Personal history of nicotine dependence; E11.9 Type 2 diabetes mellitus without complications; Z79.4 Long term (current) use of insulin; Z92.21 Personal history of antineoplastic chemotherapy; Z79.01 Long term (current) use of anticoagulants; Z88.8 Allergy status to other drugs, medicaments and biological substances
CPT/HCPCS: 71020; 71275; 74175; 80048; 82948; 84484; 85027; 93005; 94799; 99202; 99281; 99285; G0378; G8978 GP CK; G8979 GP CI; G8987 GO CJ; G8988 CI; J1815; J7030; J7512